=== PATIENT | male | born 1980 | race Caucasian/White ===

== ENCOUNTER 2017-05-10 20:57 | Emergency (ER) | payer BC ==
[2017-05-10 21:09] VITALS: BP 133/86
[2017-05-10] MEDS ORDERED: Aspirin 81 MG Tab.Chew PO ONE (21:58)
--- NOTE | 2017-05-11 00:25 | EDM.PDOC ---
ED HPI GENERAL MEDICAL PROBLEM - General Chief Complaint: ENT Problem Stated Complaint: DIZZY / LOSS OF R EYE Time Seen by Provider: 05/10/17 21:48 Source of Information: Reports: Patient History Limitations: Reports: No Limitations - History of Present Illness INITIAL COMMENTS - FREE TEXT/NARRATIVE: This patient had an episode tonight where he lost vision in the lateral visual field of his left eye. It came on all of a sudden. The image was not totally black but it was sort of fernandez and very fuzzy and blurry. He said it was kind of like a regular analog television set when it is off channel. It lasted about 1 hour in his vision is back to normal now. He did sort of feel funny and maybe had just a slight headache with it - Related Data Allergies Allergy/AdvReac Type Severity Reaction Status Date / Time codeine AdvReac Nausea Verified 05/10/17 21:16 Home Meds: Home Meds NK [No Known Home Meds] 03/18/16 [History] Past Medical History Musculoskeletal History: Reports: Fracture, Neck Pain, Chronic - Infectious Disease History Infectious Disease History: Reports: Chicken Pox - Past Surgical History Other Musculoskeletal Surgeries/Procedures:: steroid injuection in the neck Social & Family History - Tobacco Use Smoking Status *Q: Never Smoker - Caffeine Use Caffeine Use: Reports: Coffee, Energy Drinks, Soda - Recreational Drug Use Recreational Drug Use: No ED ROS ENT - Review of Systems Review Of Systems: ROS reveals no pertinent complaints other than HPI. ED EXAM, ENT - Physical Exam Exam: See Below Exam Limited By: No Limitations General Appearance: Alert, WD/WN, No Apparent Distress Eye Exam: Bilateral Eye: EOMI, PERRL, Other (Visual bunn are normal in both eyes. Unable to visualize fundi without fully dilating his eyes. Vision was 20/ 20 bilaterally) Course - Vital Signs Last Recorded V/S: Last Vital Signs Temp 36.8 C 05/10/17 21:16 Pulse 86 05/10/17 21:16 Resp 16 05/10/17 21:16 BP 133/86 05/10/17 21:16 Pulse Ox 98 05/10/17 21:16 - Orders/Labs/Meds Orders: Active Orders 24 hr Category Date Time Status Head wo Cont [CT] Stat Exams 05/10/17 22:40 Taken Labs: Laboratory Tests 05/10/17 05/10/17 Range/Units 22:08 22:08 WBC 10.4 (4.5-11.0) K/uL RBC 5.69 (4.30-5.90) M/uL Hgb 15.2 H (12.0-15.0) g/dL Hct 44.8 (40.0-54.0) % MCV 79 L (80-98) fL MCH 27 (27-31) pg MCHC 34 (32-36) % Plt Count 282 (150-400) K/uL Neut % (Auto) 67 H (36-66) % Lymph % (Auto) 21 L (24-44) % [place] % (Auto) 12 H (2-6) % Eos % (Auto) 1 L (2-4) % Baso % (Auto) 0 (0-1) % Sodium 141 (140-148) mmol/L Potassium 3.8 (3.6-5.2) mmol/L Chloride 106 (100-108) mmol/L Carbon Dioxide 26 (21-32) mmol/L Anion Gap 8.6 (5.0-14.0) mmol/L BUN 12 (7-18) mg/dL Creatinine 1.0 (0.8-1.3) mg/dL Est Cr Clr Drug Dosing 105.44 mL/min Estimated GFR (MDRD) > 60 (>60) Glucose 93 (74-106) mg/dL Calcium 9.2 (8.5-10.1) mg/dL Meds: Medications Discontinued Medications Generic Name Dose Route Start Last Admin Trade Name Freq PRN Reason Stop Dose Admin Aspirin 324 mg 05/10/17 21:58 05/10/17 22:08 Aspirin PO 05/10/17 21:59 324 mg ONETIME ONE Administration - Re-Assessments/Exams Free Text/Narrative Re-Assessment/Exam: 05/11/17 00:21 Basic lab work was done. At that time he had another episode where he started seeing some blinking in the upper outer visual field of the right eye. This lasted just a few minutes. Visual field test were done during this episode and did show decreased visualization in the upper outer quadrant. I spoke with Dr. Dr. Yesenia Bertrand MD the neurologist line maintainer section at [facility] in [place]. She recommended to go ahead and do a CT scan but that he would also need an MRI and follow-up. Patient did receive 324 mg of aspirin here in the ER Departure - Departure Time of Disposition: 00:24 Disposition: Home, Self-Care 01 Condition: Fair Clinical Impression: Transient visual loss, right eye - Discharge Information Forms: ED Department Discharge Additional Instructions: So what is at [place] around her flanks fernandez stuff around the say how long that linear laceration are a grade 2 injury to the left kidney some capsular hematoma and a linear laceration to the anterior Dr. Yesenia Bertrand MD; Dr. Hannah see what he thinks it week which is to the urologist or when acute injury to the left perinephric linear laceration involving and extending to the actually probably a urine sample when he says he says this no high density of this to indicate acute hemorrhage SO THE KIDNEYS BROKEN SPELL and Most likely you are having some kind of a migraine in which there is a spasm of blood vessels that cuts off blood flow. This could be actually in the eye itself or in different areas of the brain. At the same time this could be a mini stroke. You should take one aspirin daily either a regular size aspirin or one of the small 81 mg aspirins. You should follow-up with your Dr. or health care provider in the next one or 2 days because the neurologist at [facility],Dr. Yesenia Bertrand MD, recommended that you have an MRI of the brain - My Orders Last 24 Hours: My Active Orders 05/10/17 22:40 Head wo Cont [CT] Stat - Assessment/Plan Last 24 Hours: My Active Orders 05/10/17 22:40 Head wo Cont [CT] Stat
--- NOTE | 2017-05-15 07:43 | EDM.PDOC ---
ED HPI GENERAL MEDICAL PROBLEM - General Chief Complaint: ENT Problem Stated Complaint: DIZZY / LOSS OF R EYE Time Seen by Provider: 05/10/17 21:48 Source of Information: Reports: Patient History Limitations: Reports: No Limitations - History of Present Illness INITIAL COMMENTS - FREE TEXT/NARRATIVE: This patient had an episode tonight where he lost vision in the lateral visual field of his left eye. It came on all of a sudden. The image was not totally black but it was sort of fernandez and very fuzzy and blurry. He said it was kind of like a regular analog television set when it is off channel. It lasted about 1 hour in his vision is back to normal now. He did sort of feel funny and maybe had just a slight headache with it - Related Data Allergies Allergy/AdvReac Type Severity Reaction Status Date / Time codeine AdvReac Nausea Verified 05/10/17 21:16 Home Meds: Home Meds NK [No Known Home Meds] 03/18/16 [History] Past Medical History Musculoskeletal History: Reports: Fracture, Neck Pain, Chronic - Infectious Disease History Infectious Disease History: Reports: Chicken Pox - Past Surgical History Other Musculoskeletal Surgeries/Procedures:: steroid injuection in the neck Social & Family History - Tobacco Use Smoking Status *Q: Never Smoker - Caffeine Use Caffeine Use: Reports: Coffee, Energy Drinks, Soda - Recreational Drug Use Recreational Drug Use: No ED ROS ENT - Review of Systems Review Of Systems: ROS reveals no pertinent complaints other than HPI. ED EXAM, ENT - Physical Exam Exam: See Below Exam Limited By: No Limitations General Appearance: Alert, WD/WN, No Apparent Distress Eye Exam: Bilateral Eye: EOMI, PERRL, Other (Visual bunn are normal in both eyes unable to visualize fundi without fully dilating his eyes. Vision was 2020 bilaterally) Neurological: Alert, Oriented, CN II-XII Intact, Normal Cognition, No Motor/ Sensory Deficits Skin: Warm, Dry, Intact Course - Vital Signs Last Recorded V/S: Last Vital Signs Temp 36.8 C 05/10/17 21:16 Pulse 86 05/10/17 21:16 Resp 16 05/10/17 21:16 BP 133/86 05/10/17 21:16 Pulse Ox 98 05/10/17 21:16 - Orders/Labs/Meds Labs: Laboratory Tests 07/11/17 07/11/17 Range/Units 22:08 22:08 WBC 10.4 (4.5-11.0) K/uL RBC 5.69 (4.30-5.90) M/uL Hgb 15.2 H (12.0-15.0) g/dL Hct 44.8 (40.0-54.0) % MCV 79 L (80-98) fL MCH 27 (27-31) pg MCHC 34 (32-36) % Plt Count 282 (150-400) K/uL Neut % (Auto) 67 H (36-66) % Lymph % (Auto) 21 L (24-44) % [place] % (Auto) 12 H (2-6) % Eos % (Auto) 1 L (2-4) % Baso % (Auto) 0 (0-1) % Sodium 141 (140-148) mmol/L Potassium 3.8 (3.6-5.2) mmol/L Chloride 106 (100-108) mmol/L Carbon Dioxide 26 (21-32) mmol/L Anion Gap 8.6 (5.0-14.0) mmol/L BUN 12 (7-18) mg/dL Creatinine 1.0 (0.8-1.3) mg/dL Est Cr Clr Drug Dosing 105.44 mL/min Estimated GFR (MDRD) > 60 (>60) Glucose 93 (74-106) mg/dL Calcium 9.2 (8.5-10.1) mg/dL Meds: Medications Discontinued Medications Generic Name Dose Route Start Last Admin Trade Name Freq PRN Reason Stop Dose Admin Aspirin 324 mg 05/10/17 21:58 05/10/17 22:08 Aspirin PO 05/10/17 21:59 324 mg ONETIME ONE Administration - Re-Assessments/Exams Free Text/Narrative Re-Assessment/Exam: 05/11/17 00:21 Basic lab work was done at that time he had another episode where he started seeing some blinking in the upper outer visual field of the right eye. This lasted just a few minutes. Visual field test were done during this episode and did show disc decreased visualization in the upper outer quadrant I spoke with Dr. Yesenia Bertrand the neurologist loss control engineer at [facility] in [place]. She recommended to go ahead and do a CT but that he would also need an MRI in follow up. Patient did receive 324 mg of aspirin here in the ER Departure - Departure Time of Disposition: 07:43 (05/11/17 0024) Disposition: Home, Self-Care 01 Clinical Impression: Transient visual loss, right eye - Discharge Information Referrals: PCP,None [Primary Care Provider] - Forms: ED Department Discharge Additional Instructions: Most likely you are having some kind of a migraine in which there is a spasm of blood vessels that cuts off blood flow. This could be actually in the eye itself or in different areas of the brain. At the same time this could be a mini stroke. You should take one aspirin daily either a regular size aspirin or one of the small 81 mg aspirins. You should follow-up with your Dr. or health care provider in the next one or 2 days because the neurologist at [facility],Dr. Yesenia Bertrand MD, recommended that you have an MRI of the brain
== END 2017-05-11 00:52 | disposition home or self-care (01) ==
LOC: JP.ED 20:57
DX: H53.121 Transient visual loss, right eye (principal); Z88.5 Allergy status to narcotic agent
CPT/HCPCS: 36415; 70450; 80048; 85025; 99284; A9270

== ENCOUNTER 2022-10-06 21:59 | Emergency (ER) | payer OTHER ==
[2022-10-06] MEDS ORDERED: Proparacaine 0.5% Ophth Soln 15 ML Bottle EYERT ONE (22:22)
[2022-10-06 22:24] VITALS: BP 130/79; PULSE 102
[2022-10-06] MEDS ORDERED: Erythromycin Base 0.5% Ophth Oint 1 GM Tube EYELF ONE (22:37)
== END 2022-10-06 23:00 | disposition home or self-care (01) ==
LOC: JP.ED 21:59
DX: S05.02XA Injury of conjunctiva and corneal abrasion without foreign body, left eye, initial encounter (principal); Z88.5 Allergy status to narcotic agent; W22.8XXA Striking against or struck by other objects, initial encounter
CPT/HCPCS: 99283; A9270

== ENCOUNTER 2023-05-29 11:45 | Emergency (ER) | payer OTHER ==
[2023-05-29] MEDS ORDERED: LORazepam 1 MG Tab PO ONE (12:22)
[2023-05-29 12:39] LABS: BASOPHILS ABSOLUTE AUTO 0.03 K/uL (0.00-0.10); BASOPHILS PERCENT AUTO 0.5 % (0.1-1.3); EOSINOPHILS ABSOLUTE AUTO 0.03 K/uL (0.00-0.40); EOSINOPHILS PERCENT AUTO 0.5 % (0.0-5.4); HEMATOCRIT 44.3 % (38.4-49.7); HEMOGLOBIN 14.9 g/dL (12.9-16.9); IMMATURE GRAN ABSOLUTE AUTO 0.02 K/uL (0.00-0.23); IMMATURE GRAN PERCENT AUTO 0.3 % (0.0-0.7); LYMPHOCYTES ABSOLUTE AUTO 1.29 K/uL (0.8-3.3); LYMPHOCYTES PERCENT AUTO 20.7 % (11.4-47.7); MEAN CORPUSCULAR HEMOGLOBIN 28.3 pg (31.6-35.5); MEAN CORPUSCULAR HGB CONC 33.6 g/dL (31.6-35.5); MEAN CORPUSCULAR VOLUME 84.2 fL (81.4-99.0); MONOCYTES ABSOLUTE AUTO 0.49 K/uL (0.20-0.90); MONOCYTES PERCENT AUTO 7.9 % (3.3-12.6); NEUTROPHILS ABSOLUTE AUTO 4.38 K/uL (1.0-7.6); NEUTROPHILS PERCENT AUTO 70.1 % (40.0-78.1); PLATELET COUNT,PLT 257 K/uL (130-375); RED BLOOD CELL COUNT 5.26 M/uL (4.14-5.76); WHITE BLOOD CELL COUNT,WBC 6.2 K/uL (3.2-11.0)
[2023-05-29 13:04] LABS: CALCIUM 8.9 mg/dL (8.5-10.1); CREATININE 0.8 mg/dL (0.8-1.3); EST CRCL DRUG DOSING (CG) 124.2 mL/min; POTASSIUM,K 3.8 mmol/L (3.6-5.2); TROPONIN I HIGH SENSITIVITY 5.2 pg/mL (<=60.3)
[2023-05-29 13:18] VITALS: BP 135/91; PULSE 74
== END 2023-05-29 13:38 | disposition home or self-care (01) ==
LOC: JP.ED 11:45
DX: F41.9 Anxiety disorder, unspecified (principal); F17.210 Nicotine dependence, cigarettes, uncomplicated; Z88.5 Allergy status to narcotic agent
CPT/HCPCS: 36415; 80048; 84484; 85025; 93005; 99285; A9270

== ENCOUNTER 2024-08-30 21:47 | Emergency (ER) | payer OTHER ==
[2024-08-30 21:51] VITALS: BP 139/95; PULSE 87
[2024-08-30 22:26] LABS: BASOPHILS ABSOLUTE AUTO 0.04 K/uL (0.00-0.10); BASOPHILS PERCENT AUTO 0.4 % (0.1-1.3); EOSINOPHILS ABSOLUTE AUTO 0.11 K/uL (0.00-0.40); HEMATOCRIT 38.7 % (38.4-49.7); HEMOGLOBIN 13.2 g/dL (12.9-16.9); IMMATURE GRAN ABSOLUTE AUTO 0.03 K/uL (0.00-0.23); IMMATURE GRAN PERCENT AUTO 0.3 % (0.0-0.7); LYMPHOCYTES ABSOLUTE AUTO 2.52 K/uL (0.8-3.3); LYMPHOCYTES PERCENT AUTO 22.7 % (11.4-47.7); MEAN CORPUSCULAR HEMOGLOBIN 29.2 pg (31.6-35.5); MEAN CORPUSCULAR HGB CONC 34.1 g/dL (31.6-35.5); MEAN CORPUSCULAR VOLUME 85.6 fL (81.4-99.0); MONOCYTES ABSOLUTE AUTO 1.42 K/uL (0.20-0.90); MONOCYTES PERCENT AUTO 12.8 % (3.3-12.6); NEUTROPHILS ABSOLUTE AUTO 6.99 K/uL (1.0-7.6); NEUTROPHILS PERCENT AUTO 62.8 % (40.0-78.1); PLATELET COUNT,PLT 194 K/uL (130-375); RED BLOOD CELL COUNT 4.52 M/uL (4.14-5.76); WHITE BLOOD CELL COUNT,WBC 11.1 K/uL (3.2-11.0)
[2024-08-30 22:43] LABS: CALCIUM 9.1 mg/dL (8.5-10.1); EST CRCL DRUG DOSING (CG) 97.33 mL/min; POTASSIUM,K 3.7 mmol/L (3.6-5.2)
[2024-08-30 22:44] LABS: PROTHROMBIN TIME 10.3 sec (9.2-10.6)
[2024-08-30 22:47] LABS: ANION GAP 12.7 mmol/L (5.0-14.0)
== END 2024-08-30 23:04 | disposition home or self-care (01) ==
LOC: JP.ED 21:47
DX: K92.2 Gastrointestinal hemorrhage, unspecified (principal); Z88.5 Allergy status to narcotic agent; Z88.8 Allergy status to other drugs, medicaments and biological substances
CPT/HCPCS: 36415; 80048; 85025; 85610; 99283; 99284

== ENCOUNTER 2025-03-01 15:21 | Inpatient (IN) | payer OTHER ==
[2025-03-01 16:38] LABS: BASOPHILS ABSOLUTE AUTO 0.04 K/uL (0.00-0.10); BASOPHILS PERCENT AUTO 0.3 % (0.1-1.3); EOSINOPHILS ABSOLUTE AUTO 0.08 K/uL (0.00-0.40); EOSINOPHILS PERCENT AUTO 0.6 % (0.0-5.4); HEMOGLOBIN 14.2 g/dL (12.9-16.9); IMMATURE GRAN ABSOLUTE AUTO 0.06 K/uL (0.00-0.23); IMMATURE GRAN PERCENT AUTO 0.4 % (0.0-0.7); LYMPHOCYTES ABSOLUTE AUTO 2.34 K/uL (0.8-3.3); LYMPHOCYTES PERCENT AUTO 16.3 % (11.4-47.7); MEAN CORPUSCULAR HEMOGLOBIN 28.2 pg (31.6-35.5); MEAN CORPUSCULAR VOLUME 85.3 fL (81.4-99.0); MONOCYTES ABSOLUTE AUTO 1.53 K/uL (0.20-0.90); MONOCYTES PERCENT AUTO 10.6 % (3.3-12.6); NEUTROPHILS ABSOLUTE AUTO 10.32 K/uL (1.0-7.6); NEUTROPHILS PERCENT AUTO 71.8 % (40.0-78.1); PLATELET COUNT,PLT 243 K/uL (130-375); RED BLOOD CELL COUNT 5.04 M/uL (4.14-5.76); WHITE BLOOD CELL COUNT,WBC 14.4 K/uL (3.2-11.0)
[2025-03-01 16:59] LABS: A/G RATIO 0.9 (1.2-2.2); ALANINE AMINOTRANSFERASE,ALT 25 U/L (12-78); ALBUMIN 3.7 g/dL (3.4-5.0); ALKALINE PHOSPHATASE 79 U/L (46-116); ANION GAP 9.4 mmol/L (5.0-14.0); ASPARTATE AMNIOTRANSFERASE,AST 13 U/L (15-37); BILIRUBIN TOTAL 0.7 mg/dL (0.2-1.0); BLOOD UREA NITROGEN,BUN 8 mg/dL (7-18); CALCIUM 9.4 mg/dL (8.5-10.1); CARBON DIOXIDE,CO2 30 mmol/L (21-32); CHLORIDE,CL 103 mmol/L (100-108); CREATININE 1.1 mg/dL (0.8-1.3); EST CRCL DRUG DOSING (CG) 88.48 mL/min; ESTIMATED GFR 85 mL/min (>60); GLUCOSE RANDOM 95 mg/dL (74-106); POTASSIUM,K 3.6 mmol/L (3.6-5.2); PROTEIN TOTAL,TP 7.9 g/dL (6.4-8.2); SODIUM,NA 142 mmol/L (140-148)
[2025-03-01] MEDS: Piperacillin/Tazobactam 4.5 GM in Sodium Chloride 0.9% 100 ML IV ONE (17:11)
[2025-03-01] MEDS: Sodium Chloride 0.9% 1,000 ML IV STA (17:12)
[2025-03-01] MEDS: fentaNYL 50 MCG/ML SDV IVPUSH ONE (17:12)
[2025-03-01] MEDS ORDERED: LORazepam 2 MG/ML SDV IVPUSH PRN (19:01)
[2025-03-01] MEDS ORDERED: Sennosides/Docusate Sodium 50-8.6 MG Tab PO PRN (19:01)
[2025-03-01] MEDS ORDERED: Ondansetron 4 MG Tab.DIS PO PRN (19:01)
[2025-03-01] MEDS ORDERED: fentaNYL 100 MCG/2 ML SDV IVPUSH PRN (19:01)
[2025-03-01] MEDS ORDERED: Ondansetron 4 MG/2 ML SDV IV PRN (19:01)
[2025-03-01] MEDS: Sodium Chloride 0.9% 1,000 ML IV SCH (20:08)
[2025-03-01] MEDS: Piperacillin/Tazobactam 4.5 GM in Sodium Chloride 0.9% 100 ML IV SCH (22:06)
[2025-03-01] MEDS: Zolpidem 5 MG Tab PO PRN (22:07)
[2025-03-02] MEDS: oxyCODONE 5 MG Tab PO PRN (01:53)
[2025-03-02 05:44] LABS: HEMATOCRIT 38.6 % (38.4-49.7); HEMOGLOBIN 12.8 g/dL (12.9-16.9); MEAN CORPUSCULAR HEMOGLOBIN 27.9 pg (31.6-35.5); MEAN CORPUSCULAR HGB CONC 33.2 g/dL (31.6-35.5); MEAN CORPUSCULAR VOLUME 84.3 fL (81.4-99.0); RED BLOOD CELL COUNT 4.58 M/uL (4.14-5.76); WHITE BLOOD CELL COUNT,WBC 9.8 K/uL (3.2-11.0)
[2025-03-02 06:01] LABS: ANION GAP 7.9 mmol/L (5.0-14.0); CALCIUM 8.8 mg/dL (8.5-10.1); CREATININE 1.1 mg/dL (0.8-1.3); EST CRCL DRUG DOSING (CG) 88.48 mL/min; POTASSIUM,K 4.1 mmol/L (3.6-5.2)
[2025-03-02] MEDS ORDERED: fentaNYL 50 MCG/ML SDV IVPUSH PRN (07:13)
[2025-03-02] MEDS: Acetaminophen 325 MG Tab PO PRN (07:52)
[2025-03-02] MEDS: Losartan 50 MG Tab PO SCH (07:52)
[2025-03-02] MEDS: Hyoscyamine 0.125 MG Tab.SL SL PRN (14:07)
[2025-03-02] MEDS: Piperacillin/Tazobactam/Dext 4.5 GM in Premix Bag 1 BAG IV SCH (14:09)
[2025-03-02] MEDS: HYDROmorphone 2 MG Tab PO PRN (15:46)
[2025-03-02] MEDS: HYDROmorphone 1 MG/ML Syringe IVPUSH PRN (19:38)
[2025-03-03 05:39] VITALS: BP 106/67; PULSE 65
[2025-03-03 05:39] LABS: HEMATOCRIT 38.6 % (38.4-49.7); HEMOGLOBIN 12.7 g/dL (12.9-16.9); MEAN CORPUSCULAR HEMOGLOBIN 27.9 pg (31.6-35.5); MEAN CORPUSCULAR HGB CONC 32.9 g/dL (31.6-35.5); MEAN CORPUSCULAR VOLUME 84.6 fL (81.4-99.0); RED BLOOD CELL COUNT 4.56 M/uL (4.14-5.76); WHITE BLOOD CELL COUNT,WBC 10.4 K/uL (3.2-11.0)
[2025-03-03 05:58] LABS: ANION GAP 8.5 mmol/L (5.0-14.0); C-REACTIVE PROTEIN 4.84 mg/dL (<0.50); CREATININE 1.1 mg/dL (0.8-1.3); EST CRCL DRUG DOSING (CG) 88.48 mL/min; POTASSIUM,K 4.1 mmol/L (3.6-5.2)
[2025-03-03] MEDS: Ketorolac 30 MG/ML SDV IVPUSH ONE (09:02)
== END 2025-03-03 09:17 | disposition home or self-care (01) | DRG 392 ==
LOC: JP.ED 15:21 → JP.MS 17:30
PROVIDERS: ADMIT Internal Medicine; ATTEND Internal Medicine
DX: K57.32 Diverticulitis of large intestine without perforation or abscess without bleeding (principal); D84.821 Immunodeficiency due to drugs; M45.9 Ankylosing spondylitis of unspecified sites in spine; M54.2 Cervicalgia; G89.29 Other chronic pain; Z88.5 Allergy status to narcotic agent; Z79.899 Other long term (current) drug therapy; Z87.81 Personal history of (healed) traumatic fracture; Z98.890 Other specified postprocedural states
CPT/HCPCS: 36415; 80048; 80053; 85025; 85027; 86140; 99222; 99232; 99238; A9270-GY; J1171; J1885; J2543; J3010; J7030

== ENCOUNTER 2025-05-08 20:13 | Emergency (ER) | payer OTHER ==
[2025-05-08] MEDS: Ketorolac 15 MG/ML SDV IVPUSH ONE (20:41)
[2025-05-08] MEDS: Diphtheria,Pertussis(Acell),Tetanus Vaccine 0.5 ML Syringe IM ONE (20:42)
[2025-05-08] MEDS: Ondansetron 4 MG/2 ML SDV IVPUSH ONE (20:42)
[2025-05-08] MEDS: Sodium Chloride 0.9% 10 ML Syringe FLUSH PRN (20:43)
[2025-05-08 23:21] VITALS: BP 114/78; PULSE 119
[2025-05-09] MEDS: Bacitracin Oint 1 GM U/D Packet TOP ONE (00:08)
== END 2025-05-09 00:57 | disposition home or self-care (01) ==
LOC: JP.ED 20:13
DX: S62.320A Displaced fracture of shaft of second metacarpal bone, right hand, initial encounter for closed fracture (principal); S62.322A Displaced fracture of shaft of third metacarpal bone, right hand, initial encounter for closed fracture; S62.324A Displaced fracture of shaft of fourth metacarpal bone, right hand, initial encounter for closed fracture; S62.326A Displaced fracture of shaft of fifth metacarpal bone, right hand, initial encounter for closed fracture; S61.412A Laceration without foreign body of left hand, initial encounter; I10 Essential (primary) hypertension; Z88.5 Allergy status to narcotic agent; Z23 Encounter for immunization; Z79.899 Other long term (current) drug therapy; W23.1XXA Caught, crushed, jammed, or pinched between stationary objects, initial encounter; Y93.89 Activity, other specified
CPT/HCPCS: 29125; 73130; 90471; 90715; 96365; 96374; 96375; 96376; 99283; J0690; J1885; J2270; J2405

== ENCOUNTER 2025-06-01 13:27 | Inpatient (IN) | payer OTHER ==
[2025-06-01] MEDS ORDERED: Ondansetron 4 MG/2 ML SDV IV PRN (13:28)
[2025-06-01] MEDS ORDERED: Sodium Chloride 0.9% 10 ML Syringe FLUSH PRN (13:28)
[2025-06-01] MEDS ORDERED: Naloxone 0.4 MG/ML SDV IVPUSH PRN (13:32)
[2025-06-01] MEDS: Ampicillin/Sulbactam Na 1.5 GM in Sodium Chloride 0.9% 50 ML IV SCH (14:21)
[2025-06-02 05:58] LABS: PLATELET COUNT,PLT 303.0 K/uL (130-375); RED BLOOD CELL COUNT 4.77 M/uL (4.14-5.76); WHITE BLOOD CELL COUNT,WBC 9.5 K/uL (3.2-11.0)
[2025-06-02 06:14] LABS: BLOOD UREA NITROGEN,BUN 8.0 mg/dL (7-18); CARBON DIOXIDE,CO2 29.0 mmol/L (21-32); CHLORIDE,CL 105.0 mmol/L (100-108); CREATININE 0.9 mg/dL (0.8-1.3); EST CRCL DRUG DOSING (CG) 107.02 mL/min; ESTIMATED GFR 107.0 mL/min (>60); GLUCOSE RANDOM 98.0 mg/dL (74-106); POTASSIUM,K 4.0 mmol/L (3.6-5.2); SODIUM,NA 139.0 mmol/L (140-148)
[2025-06-03 11:20] VITALS: BP 120/83; PULSE 75
== END 2025-06-03 15:05 | disposition home or self-care (01) | DRG 392 ==
LOC: JP.MS 13:27
PROVIDERS: ADMIT Hospitalist; ATTEND Hospitalist
DX: K57.92 Diverticulitis of intestine, part unspecified, without perforation or abscess without bleeding (principal); I10 Essential (primary) hypertension; M54.2 Cervicalgia; G89.29 Other chronic pain; M45.9 Ankylosing spondylitis of unspecified sites in spine; Z88.5 Allergy status to narcotic agent; Z79.899 Other long term (current) drug therapy
CPT/HCPCS: 36415; 80048; 83735; 85027; 99222; 99232; 99238; A9270-GY; J0295; J1171; J1650; J7030

== ENCOUNTER 2025-10-10 12:27 | Emergency (ER) | payer OTHER ==
[2025-10-10 15:25] LABS: BASOPHILS ABSOLUTE AUTO 0.04 K/uL (0.00-0.10); BASOPHILS PERCENT AUTO 0.4 % (0.1-1.3); EOSINOPHILS ABSOLUTE AUTO 0.07 K/uL (0.00-0.40); EOSINOPHILS PERCENT AUTO 0.7 % (0.0-5.4); IMMATURE GRAN ABSOLUTE AUTO 0.03 K/uL (0.00-0.23); IMMATURE GRAN PERCENT AUTO 0.3 % (0.0-0.7); LYMPHOCYTES ABSOLUTE AUTO 1.73 K/uL (0.8-3.3); LYMPHOCYTES PERCENT AUTO 17.2 % (11.4-47.7); MONOCYTES ABSOLUTE AUTO 1.55 K/uL (0.20-0.90); MONOCYTES PERCENT AUTO 15.5 % (3.3-12.6); NEUTROPHILS ABSOLUTE AUTO 6.61 K/uL (1.0-7.6); NEUTROPHILS PERCENT AUTO 65.9 % (40.0-78.1); PLATELET COUNT,PLT 236 K/uL (130-375); RED BLOOD CELL COUNT 5.43 M/uL (4.14-5.76); WHITE BLOOD CELL COUNT,WBC 10.0 K/uL (3.2-11.0)
[2025-10-10] MEDS: Sodium Chloride 0.9% 10 ML Syringe FLUSH ONE (15:42)
[2025-10-10] MEDS: Iopamidol 612 MG/ML 100 ML Bottle IV SCH (15:42)
[2025-10-10 15:45] LABS: A/G RATIO 0.9 (1.2-2.2); ALANINE AMINOTRANSFERASE,ALT 99 U/L (12-78); ASPARTATE AMNIOTRANSFERASE,AST 41 U/L (15-37); BILIRUBIN TOTAL 1.2 mg/dL (0.2-1.0); BLOOD UREA NITROGEN,BUN 9 mg/dL (7-18); CARBON DIOXIDE,CO2 29 mmol/L (21-32); CHLORIDE,CL 103 mmol/L (100-108); CREATININE 0.9 mg/dL (0.8-1.3); EST CRCL DRUG DOSING (CG) 107.02 mL/min; ESTIMATED GFR 107 mL/min (>60); GLUCOSE RANDOM 88 mg/dL (74-106); POTASSIUM,K 4.3 mmol/L (3.6-5.2); PROTEIN TOTAL,TP 8.5 g/dL (6.4-8.2); SODIUM,NA 140 mmol/L (140-148)
[2025-10-10] MEDS: fentaNYL 50 MCG/ML SDV IVPUSH ONE (16:29)
[2025-10-10] MEDS: fentaNYL 50 MCG/ML SDV IM ONE (16:30)
[2025-10-10 17:35] LABS: APPEARANCE,URINE CLEAR (CLEAR); GLUCOSE,URINE NEGATIVE (NEGATIVE); OCCULT BLOOD,URINE NEGATIVE (NEGATIVE)
[2025-10-10 18:33] VITALS: BP 134/96; PULSE 86
== END 2025-10-10 18:49 | disposition home or self-care (01) ==
LOC: JP.ED 12:27
DX: K57.32 Diverticulitis of large intestine without perforation or abscess without bleeding (principal); I10 Essential (primary) hypertension; Z88.5 Allergy status to narcotic agent; Z88.8 Allergy status to other drugs, medicaments and biological substances; Z79.899 Other long term (current) drug therapy
CPT/HCPCS: 36415; 74177; 80053; 81003; 85025; 96365; 96366; 96375; 99284; J2543; J3010; Q9967